=== PATIENT | female | born 1950 ===

== ENCOUNTER → 2020-08-23 15:55 | Outpatient (ROUT) | payer MEDICARE, SELFPAY ==
[2020-08-23 16:41] LABS: BUN Creatinine Ratio 20.2 (6-22); Blood Urea Nitrogen 18 mg/dL (7-17); Calcium 9.2 mg/dL (8.4-10.2); Carbon Dioxide 29 mmol/L (22-32); Chloride 107 mmol/L (98-107); Cholesterol 218 mg/dL (140-199); Estimated Glomerular Filt Rate > 60.0 mL/min (>60); Glucose 90 mg/dL (80-110); HDL Cholesterol 51 mg/dL (40-60); HEMOLYSIS 19 (0-50); LDL Cholesterol Calculated 120 mg/dL (<100); Potassium 4.3 mmol/L (3.4-5.1); Sodium 142 mmol/L (137-145); Triglycerides 234 mg/dL (35-150)
== END ==
PROVIDERS: Visit Provider Internal Medicine
DX: I10 Essential (primary) hypertension (principal); Z13.220 Encounter for screening for lipoid disorders
CPT/HCPCS: 80048; 80061

== ENCOUNTER → 2021-03-26 08:46 | Outpatient (CLI) | payer MEDICARE, SELFPAY ==
[2021-03-26 10:50] LABS: Potassium 4.3 mmol/L (3.4-5.1)
[2021-03-26 10:51] LABS: Alanine Aminotransferase 17 IU/L (<35); Albumin Globulin Ratio 1.2 (1.0-2.8); Alkaline Phosphatase 75 U/L (38-126); Aspartate Aminotransferase 33 IU/L (14-36); BUN Creatinine Ratio 20.5 (6-22); Bilirubin Total 0.3 mg/dL (0.2-1.3); Blood Urea Nitrogen 17 mg/dL (7-17); Carbon Dioxide 25 mmol/L (22-32); Chloride 110 mmol/L (98-107); Cholesterol 159 mg/dL (140-199); Estimated Glomerular Filt Rate > 60.0 mL/min (>60); Globulin 3.3 g/dL (1.7-4.1); Glucose 115 mg/dL (80-110); HDL Cholesterol 46 mg/dL (40-60); HEMOLYSIS 17 (0-50); LDL Cholesterol Calculated 77 mg/dL (<100); Sodium 143 mmol/L (137-145); Total Protein 7.3 g/dL (6.3-8.2); Triglycerides 178 mg/dL (35-150)
[2021-03-26 11:10] LABS: TSH w/ Reflex to FT4 2.63 uIU/mL (0.47-4.68)
== END ==
PROVIDERS: Referring Provider Internal Medicine; Visit Provider Internal Medicine
DX: E78.5 Hyperlipidemia, unspecified (principal); F32.1 Major depressive disorder, single episode, moderate
CPT/HCPCS: 36415; 80053; 80061; 84443

== ENCOUNTER 2022-02-07 14:38 | Emergency (ER) | payer MEDICARE, SELFPAY ==
[2022-02-07] VITALS (9 sets, daily range): BP systolic 127–151; BP diastolic 60–67; PULSE 59–67; RESP 14–28; TEMP 36.4; O2SAT 68–100; BMI 26.5
--- NOTE | 2022-02-07 14:48 | DI.RAD.S_ITS ---
PROCEDURE: XR CHEST 1V INDICATIONS: chest pain TECHNIQUE: One view of the chest was acquired. COMPARISON: [facility], CR, XR CHEST 1 VIEW, 07/08/2021, 21:59. FINDINGS: Surgical changes and devices: None. Lungs and pleura: Lungs are clear. No pleural effusions or pneumothorax. Mediastinum: Mediastinal contours appear normal. Heart size is normal. Bones and chest wall: Remote fracture deformity of the right 7th rib. Overlying soft tissues appear unremarkable. IMPRESSION: No acute cardiopulmonary abnormality. Dictated by: Shade Jones M.D. on 02/07/2022 at 15:42 Approved by: Shade Jones M.D. on 02/07/2022 at 15:43
[2022-02-07 15:14] LABS: Alanine Aminotransferase 21 IU/L (<35); Albumin 4.6 g/dL (3.5-5.0); Albumin Globulin Ratio 1.3 (1.0-2.8); Alkaline Phosphatase 59 U/L (38-126); Aspartate Aminotransferase 37 IU/L (14-36); BUN Creatinine Ratio 23.1 (6-22); Bilirubin Total 0.6 mg/dL (0.2-1.3); Blood Urea Nitrogen 21 mg/dL (7-17); Calcium 9.3 mg/dL (8.4-10.2); Carbon Dioxide 26 mmol/L (22-32); Chloride 109 mmol/L (98-107); Creatine Kinase 109 U/L (30-135); Estimated Glomerular Filt Rate > 60.0 mL/min (>60); Globulin 3.5 g/dL (1.7-4.1); Glucose 99 mg/dL (80-110); HEMOLYSIS 43 (0-50); Lipase 354 U/L (23-300); Magnesium 1.8 mg/dL (1.6-2.3); Potassium 4.1 mmol/L (3.4-5.1); Sodium 143 mmol/L (137-145); Total Protein 8.1 g/dL (6.3-8.2)
[2022-02-07 15:25] LABS: Troponin I < 0.012 ng/mL (0.01-0.034)
[2022-02-07 15:56] LABS: Add Manual Diff / Slide Review NO; Basophils Absolute Auto 0 /uL (0-100); Basophils Percent Auto 0.4 % (0-2); Eosinophils Absolute Auto 100 /uL (0-450); Eosinophils Percent Auto 1.6 % (2-4); Hematocrit 38.3 % (36-46); Lymphocytes Absolute Auto 2500 /uL (1100-4500); Lymphocytes Percent Auto 29.9 % (25-40); Mean Corpuscular HGB Conc 33.9 % (30-36); Mean Corpuscular Hemoglobin 31.4 PG (26-34); Mean Corpuscular Volume 92.4 fL (80-100); Monocytes Absolute Auto 600 /uL (0-900); Monocytes Percent Auto 6.5 % (3-14); Neutrophils Absolute Auto 5200 /uL (1500-7000); Neutrophils Percent Auto 61.6 % (50-75); Platelet Count 183 X10^3/uL (150-400); Red Blood Cell Count 4.14 X10^6/uL (4.0-5.2); White Blood Cell Count 8.5 X10^3/uL (4.5-11.0)
--- NOTE | 2022-02-07 16:25 | ED_ITS ---
HPI - Chest Pain General Chief Complaint: Chest Pain Stated Complaint: Chest Pain W/ Left Arm Pain Time Seen by Provider: 02/07/22 16:24 Source: patient Mode of arrival: Wheelchair Limitations: no limitations History of Present Illness HPI narrative: 71F nonsmoker with cardiac history presents with the chief complaint of left- sided chest pain with radiation down her left arm for about 1 month. She does not remember what she was doing when it started and states it has been rather persistent. She states that seems to be worse when she moves her upper body and uses her left arm. She denies any worsening with deep breath or with exertion. She denies associated symptoms such as dizziness, weakness or lightheadedness. She has no nausea, vomiting or diarrhea. She denies any recent travel, history of blood clot, change in medications or diet. Related Data Previous Rx's Medication Instructions Recorded ketorolac 10 mg tablet 10 mg PO Q6H PRN #14 tab 02/07/22 Allergies Allergy/AdvReac Type Severity Reaction Status Date / Time No Known Drug Allergies Allergy Verified 02/07/22 14:51 Review of Systems Review of Systems Narrative: GENERAL: Denies chills, fatigue, malaise, fever, sweats. HEENT: Denies sinus pain, ear pain, sore throat, difficulty swallowing, dizziness. RESPIRATORY: Denies dyspnea, cough, wheezing, hemoptysis, sputum. CARDIOVASCULAR: See HPI GASTROINTESTINAL: Denies nausea, vomiting, abdominal pain, diarrhea, constipation, melena. : Denies dysuria, frequency, incontinence, hematuria, urinary retention. MUSCULOSKELETAL: denies weakness, joint pain, or bony pain SKIN: Denies rash, skin lesions, or other NEUROLOGIC: Denies weakness, headache, numbness, change in speech, confusion, seizures, incoordination. PSYCHIATRIC: No concerning psychosocial issues. 12 point review of systems is negative except for those stated above Patient History Social History Smoking Status: Never smoker Smoking Status: Never smoker Substance Use Type: does not use Exam Narrative Exam Narrative: GENERAL: [71 year old patient appears stated age. Well-developed patient, in mild distress. HEAD: Atraumatic. Normocephalic. EYES: Pupils equal round and reactive. Extraocular motions intact. No scleral icterus. No injection or drainage. ENT: Nose without bleeding, purulent drainage. Throat without erythema, tonsillar hypertrophy or exudate. Airway patent. NECK: Trachea midline. Non tender CARDIOVASCULAR: Regular rate and rhythm without murmurs, gallops, or rubs. Pain on palpation of left anterior chest. Pain is also reproduced when patient uses left upper extremity to forcefully pushed me away. Both of these elements worsen the pain that brought her in RESPIRATORY: Clear to auscultation. Breath sounds equal bilaterally. No wheezes, rales, or rhonchi. GASTROINTESTINAL: Abdomen soft, non-tender, nondistended. EXTREMITIES: No edema or joint tenderness. BACK: Nontender without deformity or crepitance. No flank tenderness. NEURO: AOx3. SKIN: No rash or erythema of visible areas Initial Vital Signs Initial Vital Signs: Vital Signs Temperature 97.5 F L 02/07/22 14:40 Pulse Rate 67 02/07/22 14:40 Respiratory Rate 18 02/07/22 14:40 Blood Pressure 127/60 02/07/22 14:40 Pulse Oximetry 94 02/07/22 14:40 Course Orders Ordered: ED Orders 02/07/22 14:48 XR chest 1V Stat EKG-12 Lead Stat 02/07/22 14:50 Complete Blood Count AUTO DIFF Stat Comprehensive Metabolic Panel Stat D Dimer Stat Lipase Stat Magnesium Stat Troponin & CK Cardiac Panel Stat 02/07/22 16:26 EKG-12 Lead Stat 02/07/22 16:46 CT angio chest PE protocol Stat Discontinued Medications Ketorolac Tromethamine (Ketorolac 30 Mg/Ml Vial) 15 mg IV NOW ONE Stop: 02/07/22 16:31 Last Admin: 02/07/22 16:35 Dose: 15 mg Documented by: SHAVONNE Reevaluation(s) Reevaluation #1: Patient resting comfortably and pain free after above-stated therapies Vital Signs Vital signs: Vital Signs - 8 hr 02/07/22 14:40 02/07/22 16:05 02/07/22 16:06 Temperature 97.5 F L Pulse Rate 67 62 62 Respiratory Rate 18 Blood Pressure 127/60 138/63 Pulse Oximetry 94 98 02/07/22 16:30 02/07/22 16:31 02/07/22 17:05 Temperature Pulse Rate 59 L 61 Respiratory Rate 25 H 28 H Blood Pressure 151/67 H Pulse Oximetry 97 87 L 68 L 02/07/22 17:30 02/07/22 18:00 02/07/22 18:02 Temperature Pulse Rate 60 59 L 60 Respiratory Rate 14 22 19 Blood Pressure 144/63 H Pulse Oximetry 100 100 99 MDM - Chest Pain Lab Data Result diagrams: 02/07/22 14:50 02/07/22 14:50 Labs: Lab Results 02/07/22 02/07/22 02/07/22 Range/Units 14:50 14:50 14:50 WBC 8.5 (4.5-11.0) X10^3/uL RBC 4.14 (4.0-5.2) X10^6/uL Hgb 13.0 (12.0-16.0) g/dL Hct 38.3 (36-46) % MCV 92.4 (80-100) fL MCH 31.4 (26-34) PG MCHC 33.9 (30-36) % RDW 14.0 (11.6-14.8) % Plt Count 183 (150-400) X10^3/uL Neut % (Auto) 61.6 (50-75) % Lymph % (Auto) 29.9 (25-40) % [place] % (Auto) 6.5 (3-14) % Eos % (Auto) 1.6 L (2-4) % Baso % (Auto) 0.4 (0-2) % Neut # (Auto) 5200 (1926-6215) /uL Lymph # (Auto) 2500 (7656-0848) /uL [place] # (Auto) 600 (0-900) /uL Eos # (Auto) 100 (0-450) /uL Baso # (Auto) 0 (0-100) /uL D-Dimer 505 H (<230) ng/mL Sodium 143 (137-145) mmol/L Potassium 4.1 (3.4-5.1) mmol/L Chloride 109 H (98-107) mmol/L Carbon Dioxide 26 (22-32) mmol/L BUN 21 H (7-17) mg/dL Creatinine 0.91 (0.52-1.04) mg/dL Estimated GFR > 60.0 (>60) mL/min BUN/Creatinine Ratio 23.1 H (6-22) Glucose 99 (80-110) mg/dL Calcium 9.3 (8.4-10.2) mg/dL Magnesium 1.8 (1.6-2.3) mg/dL Total Bilirubin 0.6 (0.2-1.3) mg/dL AST 37 H (14-36) IU/L ALT 21 (<35) IU/L Alkaline Phosphatase 59 (38-126) U/L Total Creatine Kinase 109 (30-135) U/L CK-MB (CK-2) 1.40 (<2.37) ng/mL CK-MB (CK-2) Rel Index 1.3 L (1.5-5.0) % Troponin I < 0.012 (0.01-0.034) ng/mL Total Protein 8.1 (6.3-8.2) g/dL Albumin 4.6 (3.5-5.0) g/dL Globulin 3.5 (1.7-4.1) g/dL Albumin/Globulin Ratio 1.3 (1.0-2.8) Lipase 354 H (23-300) U/L Imaging Data Chest x-ray: Radiologist's Impression: [address] [id number] XRay Report Signed Patient: Kelile Perez MR#: [id number] : 1950 Acct:[id number] Age/Sex: 71 / F Date of Service: 02/07/22 Loc: Accession Number: [id number] ?? Procedure: XR chest 1V Ordering Provider: Dexter Orosco D.O. PROCEDURE:? XR CHEST 1V ? INDICATIONS:? chest pain ? TECHNIQUE:? One view of the chest was acquired.? ? COMPARISON:? [facility], , XR CHEST 1 VIEW, 07/08/2021, 21:59. ? FINDINGS:? ? Surgical changes and devices:? None.? ? Lungs and pleura:? Lungs are clear.? No pleural effusions or pneumothorax.? ? Mediastinum:? Mediastinal contours appear normal.? Heart size is normal.? ? Bones and chest wall:? Remote fracture deformity of the right 7th rib.? Overlyi ng soft tissues appear unremarkable.? ? IMPRESSION:? No acute cardiopulmonary abnormality. ? ? Dictated by: Shade Jones M.D. on 02/07/2022 at 15:42 ? ? Approved by: Shade Jones M.D. on 02/07/2022 at 15:43 ? ECG Data Interpretation: EKG is sinus Oni with a rate of 58 and free of any signs of ischemia or ectopy. No ST segmental elevation or depression. No T wave inversions MDM Narrative Medical decision making narrative: 71-year-old female has a very reassuring history and physical exam. She has a sharp and stabbing reproducible pinpoint area of chest pain in her left anterior chest that is worse with motion, palpation and use of her left arm. Symptoms nearly completely resolved with Toradol. Labs are unremarkable, she has a nega tive troponin, no evidence of a PE, EKGs are nonischemic. She has no exertional symptoms or cardiac equivalent such as dizziness, weakness, lightheadedness. Discharge Plan Departure Patient Disposition: Home Clinical Impression: Atypical chest pain Instructions: DI for Atypical Chest Pain Activity Restrictions/Additional Instructions: *You have been diagnosed with [atypical chest pain. Your history and physical exam are very reassuring and there is no indication of a heart attack, blood c lot, pneumonia or other life-threatening diagnosis *What to do: *Please continue to take your regular medications as directed. [ x] New medication prescriptions sent to your pharmacy: [ ] [ ] New medication written as a paper prescription [ ] No new medications given *Please follow up with your primary care provider in 2-3 days, call for an appointment. Let them know you were seen in the Emergency Department and that we ask that you be seen in follow up. We will electronically transmit a record of today's note if your PCP is in our system *If you do not have a primary care provider please contact the [facility] Resource line at [phone]. They will ask some questions about your medical history and help get you set up with a doctor in the community. *Return to Emergency Department if you should have any new, worsening or concerning symptoms, such as [fever greater than 101 F, shaking chills, worsening pain, persistent vomiting or other bothersome symptoms] Prescriptions: New ketorolac 10 mg tablet 10 mg PO Q6H PRN (Reason: pain) Qty: 14 0RF Referrals: Gem Dwyer MD [Primary Care Provider] -
[2022-02-07] MEDS: KETOROLAC 30 MG/ML VIAL 15 MG IV (16:35)
[2022-02-07 16:36] LABS: D Dimer 505 ng/mL (<230)
--- NOTE | 2022-02-07 16:46 | DI.CT.S_ITS ---
PROCEDURE: CT ANGIO CHEST PE PROTOCOL INDICATIONS: left sided chest pain, occasional SOB, Critical DDImer TECHNIQUE: After the administration of intravenous contrast, 2 mm thick sections acquired from the pulmonary apices to the posterior costophrenic angles. 3-dimensional maximum intensity projection (MIP) coronal and sagittal reformats were then acquired through the thorax. For radiation dose reduction, the following was used: automated exposure control, adjustment of mA and/or kV according to patient size. COMPARISON: [facility], CR, XR CHEST 1V, 02/07/2022, 14:53. FINDINGS: Image quality: Excellent. Pulmonary arteries: Pulmonary arteries are normal in size, and demonstrate no intraluminal filling defects to suggest central pulmonary embolism. Lungs and pleura: Mild bibasilar septal thickening. There is irregular peribronchial thickening medially in the right middle lobe and distal minor atelectatic change. The airways are patent and there is very slight diffuse peribronchial thickening. No other dense consolidations or pleural effusions. Mediastinum: Heart size is enlarged, without pericardial effusion. No mediastinal or hilar adenopathy. Thoracic aorta is normal in caliber and enhancement. Esophagus is normal in caliber, without hiatal hernia. Bones and chest wall: No suspicious bony lesions. Ribs and thoracic spine appear intact throughout. Thyroid gland contains a small right lobe cystic nodule.. No axillary or supraclavicular adenopathy. Abdomen: Visualized upper abdomen demonstrates mild enlargement of the liver with a possibly nodular margin. There are two cysts in the posterior right hepatic lobe. The gallbladder surgically absent. No other visible abnormalities. IMPRESSION: 1. No pulmonary embolus. 2. Changes of mild bronchitis with slight right middle lobe bronchiolitis and atelectasis. 3. Possible cirrhotic change in a slightly enlarged liver. 4. Mild cardiomegaly. Dictated by: Yajaira Hager M.D. on 02/07/2022 at 17:32 Approved by: Yajaira Hager M.D. on 02/07/2022 at 17:41
[2022-02-07 17:19] LABS: CKMB % Relative Index 1.3 % (1.5-5.0)
== END 2022-02-07 18:39 | disposition home or self-care (01) ==
PROVIDERS: Emergency Provider Emergency Medicine; PCP Internal Medicine
DX: R07.89 Other chest pain (principal)
CPT/HCPCS: 36415; 71045; 71275; 80053; 82550; 82553; 83690; 83735; 84484; 85025; 85379; 93005; 93010; 96374; 99284; J1885

== ENCOUNTER 2022-04-12 06:54 | Emergency (ER) | payer MEDICARE, SELFPAY ==
[2022-04-12] VITALS (14 sets, daily range): BP systolic 97–130; BP diastolic 51–68; PULSE 69–82; RESP 20–30; TEMP 38; O2SAT 93–97
--- NOTE | 2022-04-12 07:36 | DI.RAD.S_ITS ---
PROCEDURE: XR CHEST 2V INDICATIONS: shortness of breath TECHNIQUE: 2 views of the chest were acquired. COMPARISON: [facility], , XR CHEST 1V, 02/07/2022, 14:53. FINDINGS: Surgical changes and devices: None. Lungs and pleura: Lungs are clear. No pleural effusions or pneumothorax. Mediastinum: Mediastinal contours are normal. Heart size is normal. Bones and chest wall: No suspicious bony abnormalities. Soft tissues appear unremarkable. IMPRESSION: No acute cardiopulmonary findings Approved by: Sreedhar Zamarripa M.D. on 04/12/2022 at 8:29
--- NOTE | 2022-04-12 08:17 | ED_ITS ---
HPI - SOB/Dyspnea General Chief Complaint: Shortness of Breath/Dyspnea Stated Complaint: Coughing a lot x 7 days Time Seen by Provider: 04/12/22 07:50 Source: patient and family Mode of arrival: Family Vehicle History of Present Illness HPI Narrative: Patient is a 71-year-old female history of coronary artery disease with stent, hypertension presenting today with fever and. She says she has not felt well for about 1 week but over the last 3 days has gotten significantly worse. Today she has fever 100.4. Every time she takes a breath she coughs. She says her chest hurts but only when she coughs. She is having some shortness of breath tightness. No nausea or vomiting. Related Data Previous Rx's Medication Instructions Recorded ketorolac 10 mg tablet 10 mg PO Q6H PRN #14 tab 02/07/22 albuterol sulfate 90 mcg/actuation 2 puff INHALATION Q4-6H PRN #8.5 04/12/22 aerosol inhaler gram dextromethorphan-guaifenesin 10 1 tab-cap PO Q8H PRN #20 cap 04/12/22 mg-200 mg capsule (Robitussin Cough-Chest Congestion DM) prednisone 20 mg tablet 40 mg PO DAILY #10 tab 04/12/22 Allergies Allergy/AdvReac Type Severity Reaction Status Date / Time No Known Drug Allergies Allergy Verified 02/07/22 14:51 Review of Systems Review of Systems Narrative: GENERAL:+ fever,+ fatigue, HEENT: Denies sinus pain, ear pain, sore throat, difficulty swallowing, neck pain RESPIRATORY: See HPI CARDIOVASCULAR: Denies chest pain, palpitations, orthopnea, edema GASTROINTESTINAL: Denies nausea, vomiting, abdominal pain, diarrhea, constipati on, melena. : Denies dysuria, frequency, incontinence, hematuria, urinary retention, flank pain. MUSCULOSKELETAL: Denies weakness, joint pain, or bony pain SKIN: No rash, no erythema, no pruritus NEUROLOGIC: Denies weakness, dizziness, headache, numbness, change in speech, confusion PSYCHIATRIC: No concerning psychosocial issues. 12 point review of systems is negative except for those stated above and HPI Patient History Medical History Coronary artery disease Hypertension Social History Smoking Status: Never smoker Smoking Status: Never smoker Substance Use Type: does not use Exam Initial Vital Signs Initial Vital Signs: Vital Signs Temperature 100.4 F H 04/12/22 07:38 Pulse Rate 82 04/12/22 07:38 Respiratory Rate 22 04/12/22 07:38 Blood Pressure 130/60 04/12/22 07:38 Pulse Oximetry 96 04/12/22 07:38 GENERAL: Alert 71-year-old female appears to not feel well mildly diaphoretic HEENT: Head atraumatic,EOMI, pupils reactive, face symmetric, [moist] mucous membranes CARDIOVASCULAR: Regular rate and rhythm without murmurs, rubs or gallops. RESPIRATORY: Decreased breath sounds slightly coarse no wheezing coughing every time she tries to breathe or talk ABDOMEN: Soft, nontender. Normoactive bowel sounds all 4 quadrants. No guarding or rebound. EXTREMITIES: Normal range of motion, no clubbing or edema. Neurovascularly intact NEUROLOGICAL: Alert and oriented x4.Normal gait and speech. SKIN: Warm, dry, no laceration, no petechiae, no rashes or lesions. Course Orders Ordered: Discontinued Medications Acetaminophen (Acetaminophen 325 Mg Tablet) 975 mg PO NOW ONE Stop: 04/12/22 08:11 Last Admin: 04/12/22 09:00 Dose: 975 mg Documented by: SHERMAN Albuterol/Ipratropium (Albuterol/Ipratropium 3 Ml Ampul) 3 ml INH NOW ONE Stop: 04/12/22 08:22 Last Admin: 04/12/22 09:08 Dose: 3 ml Documented by: THOMAS Sodium Chloride (Normal Saline 0.9%) 1,000 mls @ 1,000 mls/hr IV BOLUS ONE Stop: 04/12/22 10:12 Last Infusion: 04/12/22 12:08 Dose: 0 mls/hr Documented by: Admin: 04/12/22 09:24 Dose: 1,000 mls/hr Documented by: SHERMAN Methylprednisolone (Methylprednisolone 125 Mg/2 Ml Vial) 125 mg IV NOW ONE Stop: 04/12/22 11:08 Last Admin: 04/12/22 12:04 Dose: 125 mg Documented by: RADHA Vital Signs Vital signs: Vital Signs - 8 hr 04/12/22 11:30 04/12/22 11:31 04/12/22 12:00 Pulse Rate 69 70 69 Respiratory Rate 20 24 22 Blood Pressure 101/51 L Pulse Oximetry 94 94 93 04/12/22 12:01 Pulse Rate 72 Respiratory Rate 20 Blood Pressure 104/53 L Pulse Oximetry 93 MDM - SOB/Dyspnea Lab Data Result diagrams: 04/12/22 08:38 04/12/22 08:38 Labs: Lab Results 04/12/22 04/12/22 04/12/22 Range/Units 08:36 08:38 08:38 WBC 12.5 H (4.5-11.0) X10^3/uL RBC 3.89 L (4.0-5.2) X10^6/uL Hgb 12.3 (12.0-16.0) g/dL Hct 36.0 (36-46) % MCV 92.4 (80-100) fL MCH 31.5 (26-34) PG MCHC 34.1 (30-36) % RDW 14.8 (11.6-14.8) % Plt Count 185 (150-400) X10^3/uL Neut % (Auto) 82.6 H (50-75) % Lymph % (Auto) 8.7 L (25-40) % [place] % (Auto) 7.6 (3-14) % Eos % (Auto) 0.6 L (2-4) % Baso % (Auto) 0.5 (0-2) % Neut # (Auto) 62280 H (1518-5493) /uL Lymph # (Auto) 1100 (0772-8747) /uL [place] # (Auto) 900 (0-900) /uL Eos # (Auto) 100 (0-450) /uL Baso # (Auto) 100 (0-100) /uL Sodium 140 (137-145) mmol/L Potassium 4.6 (3.4-5.1) mmol/L Chloride 108 H (98-107) mmol/L Carbon Dioxide 23 (22-32) mmol/L BUN 19 H (7-17) mg/dL Creatinine 0.89 (0.52-1.04) mg/dL Estimated GFR > 60 (>60) mL/min BUN/Creatinine Ratio 21.3 (6-22) Glucose 151 H (80-110) mg/dL Lactate (0.7-2.1) mmol/L Calcium 8.9 (8.4-10.2) mg/dL Total Bilirubin 0.7 (0.2-1.3) mg/dL AST 34 (14-36) IU/L ALT 15 (<35) IU/L Alkaline Phosphatase 72 (38-126) U/L Total Creatine Kinase (30-135) U/L CK-MB (CK-2) (<2.37) ng/mL CK-MB (CK-2) Rel Index (1.5-5.0) % Troponin I (0.01-0.034) ng/mL NT-Pro-B Natriuret Pep (<125) pg/mL Total Protein 8.0 (6.3-8.2) g/dL Albumin 4.4 (3.5-5.0) g/dL Globulin 3.6 (1.7-4.1) g/dL Albumin/Globulin Ratio 1.2 (1.0-2.8) SARS-CoV-2 (PCR) Negative (Negative) 04/12/22 04/12/22 Range/Units 08:38 08:38 WBC (4.5-11.0) X10^3/uL RBC (4.0-5.2) X10^6/uL Hgb (12.0-16.0) g/dL Hct (36-46) % MCV (80-100) fL MCH (26-34) PG MCHC (30-36) % RDW (11.6-14.8) % Plt Count (150-400) X10^3/uL Neut % (Auto) (50-75) % Lymph % (Auto) (25-40) % [place] % (Auto) (3-14) % Eos % (Auto) (2-4) % Baso % (Auto) (0-2) % Neut # (Auto) (8140-1685) /uL Lymph # (Auto) (8830-1065) /uL [place] # (Auto) (0-900) /uL Eos # (Auto) (0-450) /uL Baso # (Auto) (0-100) /uL Sodium (137-145) mmol/L Potassium (3.4-5.1) mmol/L Chloride (98-107) mmol/L Carbon Dioxide (22-32) mmol/L BUN (7-17) mg/dL Creatinine (0.52-1.04) mg/dL Estimated GFR (>60) mL/min BUN/Creatinine Ratio (6-22) Glucose (80-110) mg/dL Lactate 1.0 (0.7-2.1) mmol/L Calcium (8.4-10.2) mg/dL Total Bilirubin (0.2-1.3) mg/dL AST (14-36) IU/L ALT (<35) IU/L Alkaline Phosphatase (38-126) U/L Total Creatine Kinase 130 (30-135) U/L CK-MB (CK-2) 0.55 (<2.37) ng/mL CK-MB (CK-2) Rel Index 0.4 L (1.5-5.0) % Troponin I < 0.012 (0.01-0.034) ng/mL NT-Pro-B Natriuret Pep 563 H (<125) pg/mL Total Protein (6.3-8.2) g/dL Albumin (3.5-5.0) g/dL Globulin (1.7-4.1) g/dL Albumin/Globulin Ratio (1.0-2.8) SARS-CoV-2 (PCR) (Negative) Imaging Data Chest x-ray: Radiologist's Impression: Kellie turner MR#: [id number] : 1950 Acct:[id number] Age/Sex: 71 / F Date of Service: 04/12/22 Loc: ED Accession Number: [id number] ?? Procedure: XR chest 2V Ordering Provider: Gladis Villavicencio D.O. PROCEDURE:? XR CHEST 2V ? INDICATIONS:? shortness of breath ? TECHNIQUE:? 2 views of the chest were acquired.? ? COMPARISON:? [facility], , XR CHEST 1V, 02/07/2022, 14:53. ? FINDINGS:? ? Surgical changes and devices:? None.? ? Lungs and pleura:? Lungs are clear.? No pleural effusions or pneumothorax.? ? Mediastinum:? Mediastinal contours are normal.? Heart size is normal.? ? Bones and chest wall:? No suspicious bony abnormalities.? Soft tissues appear unremarkable.? ? IMPRESSION:? No acute cardiopulmonary findings ? ? ? Approved by: Sreedhar Zamarripa M.D. on 04/12/2022 at 8:29? ECG Data Interpretation: Sinus rhythm rate 81 FL interval 176 QRS 132 QTC 441 wry bundle branch block noted, similar to previous EKG MDM Narrative Medical decision making narrative: Patient is not hypoxic. She is febrile no evidence of pneumonia. COVID test is negative. Probably upper respiratory virus. At this time supportive care only. She did receive albuterol treatment which seemed to help a little bit. She is taking Mucinex [id number] she says it is helping a little bit. Will send her home with an inhaler. This time does not meet admission criteria and no further treatment in the ED indicated. Discharge Plan Departure Patient Disposition: Home Clinical Impression: Acute upper respiratory infection Instructions: DI for Viral Upper Respiratory Infection -- Adult Activity Restrictions/Additional Instructions: *You have been diagnosed with upper respiratory infection *What to do: At this time her COVID test is negative. No need for antibiotics. Rest and hydrate *Continue to take medications as directed --> SENT TO [facility] Tylenol 650 mg every 6 hours if needed for fever or pain Motrin 600 mg every 6 hours if needed for fever or pain Prednisone 40 mg once a day for 5 days Albuterol inhaler 1-2 puffs if needed for coughing spell *Follow up with your primary care provider in 2-3 days or call [phone] *Return to ER if you should have increasing shortness of breath, chest pain or any new, worsening or concerning symptoms Prescriptions: New prednisone 20 mg tablet 40 mg PO DAILY Qty: 10 0RF albuterol sulfate 90 mcg/actuation HFA aerosol inhaler 2 puff INHALATION Q4-6H PRN (Reason: shortness of breath or wheezing) Qty: 8.5 0RF Robitussin Cough-Chest [place] DM 10-200 mg capsule 1 tab-cap PO Q8H PRN (Reason: cough) Qty: 20 0RF No Action ketorolac 10 mg tablet 10 mg PO Q6H PRN (Reason: pain) Qty: 14 0RF Referrals: Gem Dwyer MD [Primary Care Provider] -
[2022-04-12] MEDS: ACETAMINOPHEN 325 MG TABLET 975 MG PO (09:00)
[2022-04-12 09:01] LABS: COVID19 -Nasal RAPID Negative (Negative)
[2022-04-12 09:05] LABS: Add Manual Diff / Slide Review NO; Basophils Absolute Auto 100 /uL (0-100); Basophils Percent Auto 0.5 % (0-2); Creatine Kinase 130 U/L (30-135); Eosinophils Absolute Auto 100 /uL (0-450); Eosinophils Percent Auto 0.6 % (2-4); Hemoglobin 12.3 g/dL (12.0-16.0); Lymphocytes Absolute Auto 1100 /uL (1100-4500); Lymphocytes Percent Auto 8.7 % (25-40); Mean Corpuscular HGB Conc 34.1 % (30-36); Mean Corpuscular Hemoglobin 31.5 PG (26-34); Mean Corpuscular Volume 92.4 fL (80-100); Monocytes Absolute Auto 900 /uL (0-900); Monocytes Percent Auto 7.6 % (3-14); Neutrophils Absolute Auto 10300 /uL (1500-7000); Neutrophils Percent Auto 82.6 % (50-75); Platelet Count 185 X10^3/uL (150-400); Red Blood Cell Count 3.89 X10^6/uL (4.0-5.2); Red Cell Distribution Width 14.8 % (11.6-14.8); White Blood Cell Count 12.5 X10^3/uL (4.5-11.0)
[2022-04-12 09:07] LABS: Alanine Aminotransferase 15 IU/L (<35); Albumin 4.4 g/dL (3.5-5.0); Albumin Globulin Ratio 1.2 (1.0-2.8); Alkaline Phosphatase 72 U/L (38-126); Aspartate Aminotransferase 34 IU/L (14-36); BUN Creatinine Ratio 21.3 (6-22); Bilirubin Total 0.7 mg/dL (0.2-1.3); Blood Urea Nitrogen 19 mg/dL (7-17); Calcium 8.9 mg/dL (8.4-10.2); Carbon Dioxide 23 mmol/L (22-32); Chloride 108 mmol/L (98-107); Estimated Glomerular Filt Rate > 60 mL/min (>60); Globulin 3.6 g/dL (1.7-4.1); Glucose 151 mg/dL (80-110); HEMOLYSIS 43 (0-50); Potassium 4.6 mmol/L (3.4-5.1); Sodium 140 mmol/L (137-145)
[2022-04-12] MEDS: ALBUTEROL/IPRATROPIUM 3 ML AMPUL INH (09:08)
[2022-04-12 09:19] LABS: NT-proBNP (BNP-Adult 18+) 563 pg/mL (<125); Troponin I < 0.012 ng/mL (0.01-0.034)
[2022-04-12 09:21] LABS: CKMB % Relative Index 0.4 % (1.5-5.0); Creatine Kinase MB 0.55 ng/mL (<2.37)
[2022-04-12] MEDS: SODIUM CHLORIDE 0.9% 1,000 ML 1000 ML IV (09:24)
[2022-04-12] MEDS: methylPREDNISolone 125 MG/2 ML VIAL IV (12:04)
== END 2022-04-12 12:36 | disposition home or self-care (01) ==
PROVIDERS: Emergency Provider Emergency Medicine; PCP Internal Medicine
DX: J06.9 Acute upper respiratory infection, unspecified (principal); R05.9 Cough, unspecified; Z20.822 Contact with and (suspected) exposure to COVID-19
CPT/HCPCS: 36415; 71046; 80053; 82550; 82553; 83605; 83880; 84484; 85025; 87635; 93005; 93010; 96374; 99284; C9803; J2930

== ENCOUNTER 2022-04-16 08:05 | Emergency (ER) | payer MEDICARE, SELFPAY ==
[2022-04-16] VITALS (12 sets, daily range): BP systolic 132–134; BP diastolic 73; PULSE 72–89; RESP 20–31; TEMP 37.7; O2SAT 91–94; BMI 26.5
--- NOTE | 2022-04-16 08:24 | DI.RAD.S_ITS ---
PROCEDURE: XR CHEST 2V INDICATIONS: shortness of breath TECHNIQUE: 2 views of the chest were acquired. COMPARISON: [facility], CR, XR CHEST 2V, 04/12/2022, 7:54. FINDINGS: Surgical changes and devices: None. Lungs and pleura: Lungs are clear. No pleural effusions or pneumothorax. Mediastinum: Mediastinal contours are normal. Heart size is normal. Bones and chest wall: No suspicious bony abnormalities. Soft tissues appear unremarkable. IMPRESSION: No acute process. Dictated by: Shahrzad Johnson M.D. on 04/16/2022 at 8:47 Approved by: Shahrzad Johnson M.D. on 04/16/2022 at 8:48
[2022-04-16 08:32] LABS: Add Manual Diff / Slide Review NO; Basophils Absolute Auto 0 /uL (0-100); Basophils Percent Auto 0.3 % (0-2); Eosinophils Absolute Auto 0 /uL (0-450); Eosinophils Percent Auto 0.2 % (2-4); Hematocrit 35.9 % (36-46); Hemoglobin 12.2 g/dL (12.0-16.0); Lymphocytes Absolute Auto 2500 /uL (1100-4500); Lymphocytes Percent Auto 19.5 % (25-40); Mean Corpuscular Hemoglobin 31.4 PG (26-34); Mean Corpuscular Volume 92.2 fL (80-100); Monocytes Absolute Auto 900 /uL (0-900); Monocytes Percent Auto 6.8 % (3-14); Neutrophils Absolute Auto 9200 /uL (1500-7000); Neutrophils Percent Auto 73.2 % (50-75); Platelet Count 231 X10^3/uL (150-400); Red Blood Cell Count 3.89 X10^6/uL (4.0-5.2); Red Cell Distribution Width 14.4 % (11.6-14.8); White Blood Cell Count 12.6 X10^3/uL (4.5-11.0)
[2022-04-16 08:38] LABS: Alanine Aminotransferase 37 IU/L (<35); Albumin 4.3 g/dL (3.5-5.0); Albumin Globulin Ratio 1.1 (1.0-2.8); Alkaline Phosphatase 83 U/L (38-126); Aspartate Aminotransferase 46 IU/L (14-36); BUN Creatinine Ratio 19.3 (6-22); Bilirubin Total 0.6 mg/dL (0.2-1.3); Blood Urea Nitrogen 17 mg/dL (7-17); Calcium 9.3 mg/dL (8.4-10.2); Carbon Dioxide 27 mmol/L (22-32); Chloride 106 mmol/L (98-107); Estimated Glomerular Filt Rate > 60 mL/min (>60); Globulin 3.8 g/dL (1.7-4.1); Glucose 120 mg/dL (80-110); HEMOLYSIS < 15 (0-50); Lactate (Lactic Acid) 1.1 mmol/L (0.7-2.1); Potassium 3.7 mmol/L (3.4-5.1); Sodium 144 mmol/L (137-145); Total Protein 8.1 g/dL (6.3-8.2)
--- NOTE | 2022-04-16 08:48 | ED_ITS ---
HPI - SOB/Dyspnea General Chief Complaint: Shortness of Breath/Dyspnea Stated Complaint: Cough, fever- here Thursday, not getting better Time Seen by Provider: 04/16/22 08:29 Source: patient Mode of arrival: Wheelchair Limitations: no limitations History of Present Illness HPI Narrative: The patient has been ill for about 3 weeks. She has sore throat. She has productive cough, and constant coughing. She is having chest and upper abdominal pain associated with the frequent coughing. The cough is occasionally productive. She denies fever chills. She has no history of cardiac disease, or chronic respiratory disease. She is a nonsmoker. She has no history of asthma or allergies. She has been seen here 3 days ago, diagnosed with viral respiratory illness. COVID-19 testing is negative. She has no headache, no high fever, and no facial pressure. She has mid abdominal pain, seemingly from cough. However she has loose bowel movements. She has no bloody BMs. Her appetite is decreased, her fluid intake is good. Related Data Previous Rx's Medication Instructions Recorded ketorolac 10 mg tablet 10 mg PO Q6H PRN #14 tab 02/07/22 albuterol sulfate 90 mcg/actuation 2 puff INHALATION Q4-6H PRN #8.5 04/12/22 aerosol inhaler gram dextromethorphan-guaifenesin 10 1 tab-cap PO Q8H PRN #20 cap 04/12/22 mg-200 mg capsule (Robitussin Cough-Chest Congestion DM) prednisone 20 mg tablet 40 mg PO DAILY #10 tab 04/12/22 prednisone 20 mg tablet 40 mg PO DAILY 5 Days #10 tab 04/16/22 Allergies Allergy/AdvReac Type Severity Reaction Status Date / Time No Known Drug Allergies Allergy Verified 02/07/22 14:51 Review of Systems Constitutional Constitutional: Reports body ache(s), Denies chills, Reports fatigue, Denies fever(s), Reports poor appetite and Denies weakness Eyes Eyes: Denies change in vision and Denies eye discharge ENT Ears, Nose, Mouth, and Throat: Reports dizziness, Denies otalgia, Denies facial pain, Denies sinus pressure and Reports sore throat Cardiovascular Cardiovascular: Reports chest pain (Exacerbated by cough) Respiratory Respiratory: Reports cough and Reports pain with cough Gastrointestinal Gastrointestinal: Denies abdominal pain, Denies nausea and Denies vomiting Genitourinary Genitourinary: Denies dysuria Musculoskeletal Musculoskeletal: Denies back pain Integumentary/Breasts Skin/Breast: Denies rash Neurologic Neurologic: Denies confusion, Reports dizziness and Denies weakness Psychiatric Psychiatric: Denies anxiety and Denies confusion Endocrine Endocrine: Reports fatigue Hematologic/Lymphatic On Anticoagulants: No Patient History Medical History Coronary artery disease Hypertension Social History Smoking Status: Never smoker Smoking Status: Never smoker Substance Use Type: does not use Exam Initial Vital Signs Initial Vital Signs: Vital Signs Temperature 99.8 F H 04/16/22 08:16 Pulse Rate 89 04/16/22 08:16 Respiratory Rate 24 04/16/22 08:16 Blood Pressure 132/73 04/16/22 08:16 Pulse Oximetry 94 04/16/22 08:16 Const General: cooperative, healthy appearing, well groomed and acute distress (With frequent uncomfortable coughing.) Orientation: Orientation (Normal) [facility] Head: normocephalic and atraumatic Ears: TM's normal bilaterally Nose: nares normal Face and sinus: sinuses nontender Mouth: oropharynx normal Eyes Pupils: PERRL EOM: EOM intact bilaterally Neck Neck: full ROM, No no meningeal signs and No lymphadenopathy Chest Other: Reproducible tenderness in the left upper sternal border. Resp Other: Slight RUL wheezes, no rales or rhonchi. Cardio Rate: regular rate Rhythm: regular rhythm Heart Sounds: S1 normal, S2 normal, no click, no gallops and no murmurs GI Inspection: normal to inspection Palpation: soft, No mass and No tender Auscultation: normal bowel sounds Back/Spine/Pelvis Back: normal to inspection and No back tenderness Skin General: no rashes or lesions noted Neuro General: patient alert, patient awake, patient oriented x3 and no focal motor deficits Extrem General: normal to inspection, full ROM, no pedal edema and no calf tenderness Psych Mental Status: mental status grossly normal Course Course Course Narrative: The patient has received DuoNeb followed by albuterol neb, as well as Solu- Medrol. Her right upper lung his cleared, her cough has diminished, not totally resolved. Her chest x-ray is clear. A respiratory PCR panel revealed adenovirus infection. Orders Ordered: Discontinued Medications Albuterol (Albuterol 2.5 Mg/3 Ml Neb (Adult)) 2.5 mg INH NOW ONE Stop: 04/16/22 08:46 Last Admin: 04/16/22 11:25 Dose: 2.5 mg Documented by: GRICELDA Albuterol (Albuterol Hfa Prepack) 1 box MISC SEEINSTR ONE Stop: 04/16/22 12:18 Last Admin: 04/16/22 13:05 Dose: 1 box Documented by: LEXY Methylprednisolone (Methylprednisolone 125 Mg/2 Ml Vial) 125 mg IV NOW ONE Stop: 04/16/22 09:13 Last Admin: 04/16/22 09:25 Dose: 125 mg Documented by: LEXY Vital Signs Vital signs: Vital Signs - 8 hr 04/16/22 11:00 04/16/22 11:26 04/16/22 11:30 Pulse Rate 72 74 84 Respiratory Rate 23 20 24 Blood Pressure Pulse Oximetry 93 93 91 04/16/22 12:00 04/16/22 12:30 04/16/22 13:00 Pulse Rate 79 80 78 Respiratory Rate 22 31 H 23 Blood Pressure Pulse Oximetry 92 93 94 04/16/22 13:34 Pulse Rate Respiratory Rate Blood Pressure 134/73 Pulse Oximetry MDM - SOB/Dyspnea Lab Data Result diagrams: 04/16/22 08:20 04/16/22 08:20 Labs: Lab Results 04/16/22 04/16/22 04/16/22 Range/Units 08:20 08:20 08:20 WBC 12.6 H (4.5-11.0) X10^3/uL RBC 3.89 L (4.0-5.2) X10^6/uL Hgb 12.2 (12.0-16.0) g/dL Hct 35.9 L (36-46) % MCV 92.2 (80-100) fL MCH 31.4 (26-34) PG MCHC 34.0 (30-36) % RDW 14.4 (11.6-14.8) % Plt Count 231 (150-400) X10^3/uL Neut % (Auto) 73.2 (50-75) % Lymph % (Auto) 19.5 L (25-40) % [place] % (Auto) 6.8 (3-14) % Eos % (Auto) 0.2 L (2-4) % Baso % (Auto) 0.3 (0-2) % Neut # (Auto) 9200 H (0614-4173) /uL Lymph # (Auto) 2500 (4719-7273) /uL [place] # (Auto) 900 (0-900) /uL Eos # (Auto) 0 (0-450) /uL Baso # (Auto) 0 (0-100) /uL Sodium 144 (137-145) mmol/L Potassium 3.7 (3.4-5.1) mmol/L Chloride 106 (98-107) mmol/L Carbon Dioxide 27 (22-32) mmol/L BUN 17 (7-17) mg/dL Creatinine 0.88 (0.52-1.04) mg/dL Estimated GFR > 60 (>60) mL/min BUN/Creatinine Ratio 19.3 (6-22) Glucose 120 H (80-110) mg/dL Lactate 1.1 (0.7-2.1) mmol/L Calcium 9.3 (8.4-10.2) mg/dL Total Bilirubin 0.6 (0.2-1.3) mg/dL AST 46 H (14-36) IU/L ALT 37 H (<35) IU/L Alkaline Phosphatase 83 (38-126) U/L Total Creatine Kinase (30-135) U/L CK-MB (CK-2) (<2.37) ng/mL CK-MB (CK-2) Rel Index (1.5-5.0) % Troponin I (0.01-0.034) ng/mL NT-Pro-B Natriuret Pep (<125) pg/mL Total Protein 8.1 (6.3-8.2) g/dL Albumin 4.3 (3.5-5.0) g/dL Globulin 3.8 (1.7-4.1) g/dL Albumin/Globulin Ratio 1.1 (1.0-2.8) Chlamy pneumoniae PCR (Not Detect) Adenovirus (PCR) (Not Detect) B. pertussis DNA (PCR) (Not Detecte) B.parapertussis DNA PCR (Not Detecte) Coronavirus OC43 (PCR) (Not Detect) Coronavirus HKU1 (PCR) (Not Detect) Coronavirus 229E (PCR) (Not Detect) SARS-CoV-2 (PCR) (Not Detecte) Coronavirus NL63 (PCR) (Not Detect) Human Metapneumovir PCR (Not Detect) Influenza Type A (PCR) (Not Detect) Influenza Type B (PCR) (Not Detect) M. pneumoniae (PCR) (Not Detect) Parainfluenza 1 (PCR) (Not Detect) Parainfluenza 2 (PCR) (Not Detect) Parainfluenza 3 (PCR) (Not Detect) Parainfluenza 4 (PCR) (Not Detect) RSV (PCR) (Not Detect) Entero/Rhino (PCR) (Not Detect) 04/16/22 04/16/22 04/16/22 Range/Units 08:20 08:20 08:20 WBC (4.5-11.0) X10^3/uL RBC (4.0-5.2) X10^6/uL Hgb (12.0-16.0) g/dL Hct (36-46) % MCV (80-100) fL MCH (26-34) PG MCHC (30-36) % RDW (11.6-14.8) % Plt Count (150-400) X10^3/uL Neut % (Auto) (50-75) % Lymph % (Auto) (25-40) % [place] % (Auto) (3-14) % Eos % (Auto) (2-4) % Baso % (Auto) (0-2) % Neut # (Auto) (5780-1319) /uL Lymph # (Auto) (4272-7470) /uL [place] # (Auto) (0-900) /uL Eos # (Auto) (0-450) /uL Baso # (Auto) (0-100) /uL Sodium (137-145) mmol/L Potassium (3.4-5.1) mmol/L Chloride (98-107) mmol/L Carbon Dioxide (22-32) mmol/L BUN (7-17) mg/dL Creatinine (0.52-1.04) mg/dL Estimated GFR (>60) mL/min BUN/Creatinine Ratio (6-22) Glucose (80-110) mg/dL Lactate (0.7-2.1) mmol/L Calcium (8.4-10.2) mg/dL Total Bilirubin (0.2-1.3) mg/dL AST (14-36) IU/L ALT (<35) IU/L Alkaline Phosphatase (38-126) U/L Total Creatine Kinase 228 H (30-135) U/L CK-MB (CK-2) 2.07 (<2.37) ng/mL CK-MB (CK-2) Rel Index 0.9 L (1.5-5.0) % Troponin I < 0.012 (0.01-0.034) ng/mL NT-Pro-B Natriuret Pep 570 H (<125) pg/mL Total Protein (6.3-8.2) g/dL Albumin (3.5-5.0) g/dL Globulin (1.7-4.1) g/dL Albumin/Globulin Ratio (1.0-2.8) Chlamy pneumoniae PCR Not detected (Not Detect) Adenovirus (PCR) Detected H (Not Detect) B. pertussis DNA (PCR) Not detected (Not Detecte) B.parapertussis DNA PCR Not detected (Not Detecte) Coronavirus OC43 (PCR) Not detected (Not Detect) Coronavirus HKU1 (PCR) Not detected (Not Detect) Coronavirus 229E (PCR) Not detected (Not Detect) SARS-CoV-2 (PCR) Not detected (Not Detecte) Coronavirus NL63 (PCR) Not detected (Not Detect) Human Metapneumovir PCR Not detected (Not Detect) Influenza Type A (PCR) Not detected (Not Detect) Influenza Type B (PCR) Not detected (Not Detect) M. pneumoniae (PCR) Not detected (Not Detect) Parainfluenza 1 (PCR) Not detected (Not Detect) Parainfluenza 2 (PCR) Not detected (Not Detect) Parainfluenza 3 (PCR) Not detected (Not Detect) Parainfluenza 4 (PCR) Not detected (Not Detect) RSV (PCR) Not detected (Not Detect) Entero/Rhino (PCR) Not detected (Not Detect) Imaging Data Chest x-ray: Radiologist's Impression: No acute process. ECG Data Attestation: I personally reviewed and interpreted this ECG as follows: (Normal sinus rhythm rate 83 beats per minute. RBBB. Nonspecific ST T wave changes. No ectopy.) Discharge Plan Departure Patient Disposition: Home Clinical Impression: Viral URI Instructions: DI for Viral Upper Respiratory Infection -- Adult Activity Restrictions/Additional Instructions: Prednisone 40 mg daily for 5 days. Albuterol 2 puffs with spacer every 3-4 hours as needed for cough. Recheck with your doctor in 1 week if not improved. Return here as necessary. Prescriptions: New prednisone 20 mg tablet 40 mg PO DAILY 5 Days Qty: 10 0RF No Action ketorolac 10 mg tablet 10 mg PO Q6H PRN (Reason: pain) Qty: 14 0RF prednisone 20 mg tablet 40 mg PO DAILY Qty: 10 0RF albuterol sulfate 90 mcg/actuation HFA aerosol inhaler 2 puff INHALATION Q4-6H PRN (Reason: shortness of breath or wheezing) Qty: 8.5 0RF Robitussin Cough-Chest Sherman DM 10-200 mg capsule 1 tab-cap PO Q8H PRN (Reason: cough) Qty: 20 0RF Referrals: Gem Dwyer MD [Primary Care Provider] -
[2022-04-16] MEDS: methylPREDNISolone 125 MG/2 ML VIAL IV (09:25)
[2022-04-16 09:51] LABS: Creatine Kinase 228 U/L (30-135)
[2022-04-16 10:01] LABS: NT-proBNP (BNP-Adult 18+) 570 pg/mL (<125)
[2022-04-16 10:04] LABS: Troponin I < 0.012 ng/mL (0.01-0.034)
[2022-04-16 10:06] LABS: CKMB % Relative Index 0.9 % (1.5-5.0); Creatine Kinase MB 2.07 ng/mL (<2.37)
[2022-04-16 11:08] LABS: Adenovirus Detected (Not Detect)
[2022-04-16 11:09] LABS: B. parapertussis Not Detected (Not Detecte); Bordetella pertussis Not Detected (Not Detecte); Chlamydophila pneumoniae Not Detected (Not Detect); Coronavirus 229E Not Detected (Not Detect); Coronavirus HKU1 Not Detected (Not Detect); Coronavirus NL 63 Not Detected (Not Detect); Coronavirus OC43 Not Detected (Not Detect); Human Metapneumovirus Not Detected (Not Detect); Human Rhinovirus/Enterovirus Not Detected (Not Detect); Influenza A Not Detected (Not Detect); Influenza B Not Detected (Not Detect); Mycoplasma pneumoniae Not Detected (Not Detect); Parainfluenza Virus 1 Not Detected (Not Detect); Parainfluenza Virus 2 Not Detected (Not Detect); Parainfluenza Virus 3 Not Detected (Not Detect); Parainfluenza Virus 4 Not Detected (Not Detect); Respiratory Syncytial Virus Not Detected (Not Detect); SARS- CoV-2 Not Detected (Not Detecte)
[2022-04-16] MEDS: ALBUTEROL 2.5 MG/3 ML NEB (ADULT) INH (11:25)
[2022-04-16] MEDS: ALBUTEROL HFA PREPACK 1 BOX MISC (13:05)
== END 2022-04-16 13:36 | disposition home or self-care (01) ==
PROVIDERS: Emergency Provider Emergency Medicine; PCP Internal Medicine
DX: J06.9 Acute upper respiratory infection, unspecified (principal); Z20.822 Contact with and (suspected) exposure to COVID-19
CPT/HCPCS: 36415; 71046; 80053; 82550; 82553; 83605; 83880; 84484; 85025; 87633; 93005; 94640; 96374; 99284; J2930; J7613

== ENCOUNTER 2022-04-29 11:42 | Emergency (ER) | payer MEDICARE, SELFPAY ==
[2022-04-29 12:14] VITALS: BP 138/59; PULSE 64; RESP 15; TEMP 36.3; O2SAT 98; BMI 26.5
[2022-04-29 16:07] VITALS: BP 154/61
[2022-04-29 16:32] LABS: COVID19 -Nasal RAPID Negative (Negative)
--- NOTE | 2022-04-29 17:31 | ED_ITS ---
HPI - URI/Sore Throat <Naina Lala PA-C - Last Filed: 05/12/22 09:45> General Chief Complaint: Upper Respiratory Symptoms Stated Complaint: Cough sore throat Time Seen by Provider: 04/29/22 14:42 Source: patient Mode of arrival: Ambulatory History of Present Illness HPI Narrative: 71-year-old female with past medical history coronary artery disease, hypertension presents to the ED with 5 weeks of persistent cough. Patient states that she had a URI 5 weeks ago, other symptoms dissipated, however she is left with this persistent cough. Patient denies fever, chills, chest pain, shortness breath, nausea, vomiting, abdominal pain, flank pain, dysuria, lightheadedness, dizziness, syncope. Related Data Previous Rx's Medication Instructions Recorded ketorolac 10 mg tablet 10 mg PO Q6H PRN pain #14 tabs 02/07/22 albuterol sulfate 90 mcg/actuation 2 puff inhalation Q4-6H PRN 04/12/22 aerosol inhaler shortness of breath or wheezing #8.5 grams dextromethorphan-guaifenesin 10 1 tab-cap PO Q8H PRN cough #20 caps 04/12/22 mg-200 mg capsule (Robitussin Cough-Chest Congestion DM) prednisone 20 mg tablet 40 mg PO DAILY #10 tabs 04/12/22 benzonatate 200 mg capsule 200 mg PO TID PRN cough #30 caps 04/29/22 Allergies Allergy/AdvReac Type Severity Reaction Status Date / Time No Known Drug Allergies Allergy Verified 04/29/22 12:14 Review of Systems <Naina Lala PA-C - Last Filed: 05/12/22 09:45> Review of Systems ROS Unobtainable: All systems reviewed & are unremarkable except as noted in HPI and below Constitutional Constitutional: Denies chills, Denies fatigue, Denies fever(s), Denies frequent falls, Denies lethargy and Denies weakness Eyes Eyes: Denies change in vision, Denies eye discharge, Denies irritation and Denies loss of vision ENT Ears, Nose, Mouth, and Throat: Denies change in voice, Denies dizziness, Denies neck pain, Denies sore throat and Denies throat swelling Cardiovascular Cardiovascular: Denies chest pain, Denies irregular heart rhythm, Denies lightheadedness, Denies palpitations, Denies dyspnea, Denies dyspnea on exertion and Denies orthopnea Respiratory Respiratory: Reports cough, Denies dyspnea, Denies dyspnea on exertion and Denies wheezing Gastrointestinal Gastrointestinal: Denies abdominal pain, Denies change in bowel habits, Denies diarrhea, Denies nausea and Denies vomiting Genitourinary Genitourinary: Denies hematuria, Denies flank pain, Denies urinary incontinence and Denies urinary urgency Musculoskeletal Musculoskeletal: Denies back pain, Denies muscle weakness, Denies neck pain, Denies numbness and Denies tingling Integumentary/Breasts Skin/Breast: Denies pruritus, Denies erythema, Denies rash and Denies wounds Neurologic Neurologic: Denies behavioral changes, Denies confusion, Denies dizziness, Denies frequent falls, Denies loss of vision, Denies numbness, Denies tingling and Denies weakness Psychiatric Psychiatric: Denies anxiety, Denies behavioral changes, Denies confusion, Denies depression, Denies homicidal ideation and Denies suicidal ideation Endocrine Endocrine: Denies fatigue, Denies flushing and Denies palpitations Hematologic/Lymphatic Hematologic/Lymphatic: Denies easy bruising Allergic/Immunologic Allergic/Immunologic: Denies urticaria, Denies throat swelling and Denies wheezing Patient History <Naina Lala PA-C - Last Filed: 05/12/22 09:45> Medical History Coronary artery disease Hypertension Social History Smoking Status: Never smoker Smoking Status: Never smoker alcohol intake frequency: holidays/special occasions only Substance Use Type: does not use Exam <Naina Lala PA-C - Last Filed: 05/12/22 09:45> Narrative Exam Narrative: Const General:?cooperative, healthy appearing and comfortable [facility] Head:?normal to inspection Ears:?hearing grossly normal bilaterally Nose:?external nose normal Face and sinus:?normal facial exam and sinuses nontender Mouth:?oral mucosae normal Throat:?posterior oropharynx normal Eyes General:?appearance normal, both eyes and all related structures Neck Neck:?normal visual inspection and no lymphadenopathy noted Resp Effort & Inspection:?normal respiratory effort Auscultation:?clear to auscultation bilaterally Cardio Rate:?regular rate Rhythm:?regular rhythm Neuro General:?patient alert, patient awake and patient oriented x3 Initial Vital Signs Initial Vital Signs: Vital Signs Temperature 97.4 F L 04/29/22 12:14 Pulse Rate 64 04/29/22 12:14 Respiratory Rate 15 04/29/22 12:14 Blood Pressure 138/59 L 04/29/22 12:14 Pulse Oximetry 98 04/29/22 12:14 Oxygen Delivery Method 04/29/22 12:14 <Lisa Casey DO - Last Filed: 06/02/22 13:39> Initial Vital Signs Initial Vital Signs: Vital Signs Temperature 97.4 F L 04/29/22 12:14 Pulse Rate 64 04/29/22 12:14 Respiratory Rate 15 04/29/22 12:14 Blood Pressure 138/59 L 04/29/22 12:14 Pulse Oximetry 98 04/29/22 12:14 Oxygen Delivery Method 04/29/22 12:14 Course <Naina Lala PA-C - Last Filed: 05/12/22 09:45> Orders Ordered: ED Orders 04/29/22 12:16 EKG-12 Lead Stat 04/29/22 16:05 COVID19 -Nasal RAPID/Pre-Proc Stat Vital Signs Vital signs: Vital Signs - 8 hr 04/29/22 16:07 04/29/22 18:19 Pulse Rate 78 Respiratory Rate 20 Blood Pressure 154/61 H 193/80 H Pulse Oximetry 98 <Lisa Casey DO - Last Filed: 06/02/22 13:39> Orders Ordered: ED Orders 04/29/22 12:16 EKG-12 Lead Stat 04/29/22 16:05 COVID19 -Nasal RAPID/Pre-Proc Stat Vital Signs Vital signs: Vital Signs - 8 hr 04/29/22 16:07 04/29/22 18:19 Pulse Rate 78 Respiratory Rate 20 Blood Pressure 154/61 H 193/80 H Pulse Oximetry 98 MDM - URI/Sore Throat <COLLETTE Payton Last Filed: 05/12/22 09:45> Lab Data Attestation: I reviewed the patient's lab results. Lab results narrative: COVID-19 negative Labs: Lab Results 04/29/22 Range/Units 16:05 SARS-CoV-2 (PCR) Negative (Negative) MDM Narrative Medical decision making narrative: 71-year-old female with past medical history coronary artery disease, hypertension presents to the ED with 5 weeks of persistent cough. Concern for COVID-19 infection versus other viral syndrome versus bronchitis. COVID test was obtained and was negative. Physical exam was reassuring with normal bilateral breath sounds. Patient's symptoms are likely due to bronchitis. Will treat the cough with Tessalon Perles. ED return precautions discussed with patient. Patient verbalized understanding. <Lisa Casey DO - Last Filed: 06/02/22 13:39> Lab Data Labs: Lab Results 04/29/22 Range/Units 16:05 SARS-CoV-2 (PCR) Negative (Negative) Discharge Plan Departure Patient Disposition: Home Clinical Impression: Bronchitis Instructions: DI for Acute Bronchitis Activity Restrictions/Additional Instructions: You were evaluated in the ED today for a cough. Your COVID-19 test was negative. Your symptoms are likely due to bronchitis which is an inflammation of your airways. You may continue to use your inhaler. You have been prescribed Tessalon Perles for your cough. Return to the ED if you have fevers, chills, worsening symptoms, chest pain, shortness of breath. Prescriptions: New benzonatate 200 mg capsule 200 mg PO TID PRN (Reason: cough) Qty: 30 0RF No Action ketorolac 10 mg tablet 10 mg PO Q6H PRN (Reason: pain) Qty: 14 0RF prednisone 20 mg tablet 40 mg PO DAILY Qty: 10 0RF albuterol sulfate 90 mcg/actuation HFA aerosol inhaler 2 puff INHALATION Q4-6H PRN (Reason: shortness of breath or wheezing) Qty: 8.5 0RF Robitussin Cough-Chest [place] DM 10-200 mg capsule 1 tab-cap PO Q8H PRN (Reason: cough) Qty: 20 0RF Referrals: Gem Dwyer MD [Primary Care Provider] - Visit Report Forms: Patient Portal/API <Lisa Casey DO - Last Filed: 06/02/22 13:39> Cosign ED Attending Cosignature Attestation: I was immediately available in the department for consultation. Documentation has been reviewed.
[2022-04-29 18:19] VITALS: BP 193/80; PULSE 78; RESP 20; O2SAT 98
--- NOTE | 2022-04-29 18:20 | PC.NURSE ---
Pt BP elevated at time of discharge. Pt coughing quite a bit, also says this is normal and she will take her BP meds when she gets home.
== END 2022-04-29 18:20 | disposition home or self-care (01) ==
PROVIDERS: Emergency Medicine; Emergency Provider Student in an Organized Health Care Education/Training Program; PCP Internal Medicine
DX: J40 Bronchitis, not specified as acute or chronic (principal); R07.9 Chest pain, unspecified; Z20.822 Contact with and (suspected) exposure to COVID-19
CPT/HCPCS: 87635; 93005; 93010; 99283; C9803

== ENCOUNTER → 2023-12-16 09:46 | Outpatient (CLI) | payer OTHER, SELFPAY ==
--- NOTE | 2023-12-16 09:47 | DI.RAD.S_ITS ---
PROCEDURE: XR CHEST 2V INDICATIONS: Cough TECHNIQUE: 2 views of the chest were acquired. COMPARISON: Located Within [facility], CR, XR CHEST 2V, 04/16/2022, 8:35. FINDINGS: Surgical changes and devices: None. Lungs and pleura: Lungs are clear. No pleural effusions or pneumothorax. Mediastinum: Mediastinal contours are normal. Heart size is normal. Bones and chest wall: No suspicious bony abnormalities. Soft tissues appear unremarkable. IMPRESSION: No acute cardiopulmonary abnormality is seen. Approved by: Sreedhar Zamarripa M.D. on 12/16/2023 at 17:45
== END ==
LOC: RAD 09:46
PROVIDERS: Referring Provider Nurse Practitioner Family; Visit Provider Nurse Practitioner Family
DX: R05.9 Cough, unspecified (principal)
CPT/HCPCS: 71046

== ENCOUNTER 2023-12-18 19:11 | Emergency (ER) | payer OTHER, SELFPAY ==
[2023-12-18 19:20] VITALS: BP 152/68; PULSE 70; RESP 20; TEMP 36.4; O2SAT 98; BMI 30.1
--- NOTE | 2023-12-18 19:42 | DI.RAD.S_ITS ---
PROCEDURE: XR CHEST 2V INDICATIONS: WORSENING COUGH TECHNIQUE: 2 views of the chest were acquired. COMPARISON: [facility], CR, XR CHEST 2V, 04/12/2022, 7:54. [facility], CR, XR CHEST 2V, 04/16/2022, 8:35. [facility], CR, XR CHEST 2V, 12/16/2023, 9:47. FINDINGS: Surgical changes and devices: None. Lungs and pleura: Lungs are clear. No pleural effusions or pneumothorax. There is right diaphragmatic eventration. Mediastinum: Mediastinal contours are normal. Heart size is normal. Bones and chest wall: No suspicious bony abnormalities. Soft tissues appear unremarkable. IMPRESSION: No acute cardiopulmonary abnormality is seen. Dictated by: Kain Resendez M.D. on 12/18/2023 at 20:08 Approved by: Kani Resendez M.D. on 12/18/2023 at 20:09
--- NOTE | 2023-12-18 19:43 | ED.CHESTPAIN ---
HPI - Chest Pain General Chief Complaint: Chest Pain Stated Complaint: cough, chest pain Time Seen by Provider: 12/18/23 19:20 Source: patient Mode of arrival: Ambulatory Limitations: no limitations History of Present Illness HPI narrative: 73-year-old female presents for persistent cough for multiple weeks. Saw the walk-in clinic 2 days ago, had a chest x-ray and was told she would bronchitis. She was discharged with Brea Yates, but states that she is still coughing and it is bothersome and causing her trouble sleeping. She states that she was coughing so hard it gives her chest and stomach pains. She is here today for 2nd opinion. Related Data Home Medications Medication Instructions Recorded Confirmed atorvastatin 10 mg tablet 10 mg PO DAILY 12/16/23 12/16/23 losartan 100 mg tablet 100 mg PO DAILY 12/16/23 12/16/23 metoprolol succinate 100 mg 100 mg PO DAILY 12/16/23 12/16/23 tablet,extended release 24 hr pantoprazole 40 mg tablet,delayed 40 mg PO DAILY 12/16/23 12/16/23 release sertraline 100 mg tablet 100 mg PO DAILY 12/16/23 12/16/23 sumatriptan succinate 50 mg tablet 50 mg PO 12/16/23 12/16/23 zolpidem 5 mg tablet 5 mg PO ONCE PM PRN 12/16/23 12/16/23 Previous Rx's Medication Instructions Recorded ketorolac 10 mg tablet 10 mg PO Q6H PRN pain #14 tabs 02/07/22 albuterol sulfate 90 mcg/actuation 2 puff inhalation Q4-6H PRN 04/12/22 aerosol inhaler shortness of breath or wheezing #8.5 grams dextromethorphan-guaifenesin 10 1 tab-cap PO Q8H PRN cough #20 caps 04/12/22 mg-200 mg capsule (Robitussin Cough-Chest Congestion DM) prednisone 20 mg tablet 40 mg (2 x 20 mg) PO DAILY #10 tabs 04/12/22 benzonatate 200 mg capsule 200 mg PO TID PRN cough #30 caps 04/29/22 benzonatate 100 mg capsule 100 mg PO BID PRN cough #20 caps 12/16/23 fluticasone propionate 50 1 spray intranasal Q12H #16 grams 01/24/24 mcg/actuation nasal spray,suspension (Flonase Allergy Relief) hydrocodone-homatropine 5 mg-1.5 5 ml PO Q4-6H PRN cough #100 mL 12/18/23 mg/5 mL (5 mL) oral syrup (Hycodan) Allergies Allergy/AdvReac Type Severity Reaction Status Date / Time No Known Drug Allergies Allergy Verified 12/16/23 09:28 Review of Systems Review of Systems Narrative: See HPI Patient History Medical History Coronary artery disease Hypertension Social History Smoking Status: Never smoker Smoking Status: Never smoker alcohol intake frequency: holidays/special occasions only Substance Use Type: does not use Exam Initial Vital Signs Initial Vital Signs: Vital Signs Temperature 97.5 F L 12/18/23 19:20 Pulse Rate 70 12/18/23 19:20 Respiratory Rate 20 12/18/23 19:20 Blood Pressure 152/68 H 12/18/23 19:20 Pulse Oximetry 98 12/18/23 19:20 Oxygen Delivery Method Room Air 12/18/23 19:20 Const: Awake, alert, no acute distress, nontoxic appearing Cardiac: regular rate, regular rhythm RESP: unlabored, clear bilaterally, no wheezing GI: Atraumatic, soft, nontender, nondistended, no rebound, no guarding MSK: Atraumatic, full range of motion, pulses equal Skin: Warm, Dry, intact, no rashes Neuro: AO x3, CN II-XII grossly intact, moves all extremities Psych: affect normal, mood normal, not suicidal, not homicidal Course Orders Ordered: ED Orders 12/18/23 19:42 Chest [XR chest 2V] Stat Discontinued Medications Dexamethasone (Dexamethasone 10 Mg/Ml Vial) 10 mg PO NOW ONE Stop: 12/18/23 19:43 Last Admin: 12/18/23 19:48 Dose: 10 mg Documented By: JAY Vital Signs Vital signs: Vital Signs - 8 hr 12/18/23 19:20 12/18/23 20:42 Temperature 97.5 F L Pulse Rate 70 62 Respiratory Rate 20 22 Blood Pressure 152/68 H Pulse Oximetry 98 96 Oxygen Delivery Method Room Air Room Air MDM - Chest Pain Differential Diagnosis Differential diagnosis: Likely other (bronchitis, pneumonia, viral syndrome) MDM Narrative Medical decision making narrative: Persistent nonproductive cough not improved with Tessalon Perles. Lungs are clear to auscultation bilaterally, saturating well on room air, conversational without dyspnea. Repeat two-view chest x-ray shows no evidence of pneumonia. Patient given a dose of steroids, additional cough medication sent to pharmacy of choice. Patient was advised that since she is on Ambien she should not mix these 2 medications. PCP follow up advised. Discharge Plan Departure Patient Disposition: Home Clinical Impression: Cough Instructions: DI for Chronic Bronchitis Prescriptions: New hydrocodone-homatropine [Hycodan] 5-1.5 mg/5 mL (5 mL) syrup 5 ml PO Q4-6H PRN (Reason: cough) Qty: 100 0RF Rx Instructions: DO NOT TAKE WITH AMBIEN, ALCOHOL, OR OTHER SEDATIVES No Action zolpidem 5 mg tablet 5 mg PO ONCE PM PRN losartan 100 mg tablet 100 mg PO DAILY pantoprazole 40 mg tablet,delayed release (DR/EC) 40 mg PO DAILY sumatriptan succinate 50 mg tablet 50 mg PO sertraline 100 mg tablet 100 mg PO DAILY metoprolol succinate 100 mg tablet extended release 24 hr 100 mg PO DAILY atorvastatin 10 mg tablet 10 mg PO DAILY benzonatate 100 mg capsule 100 mg PO BID PRN (Reason: cough) Qty: 20 0RF fluticasone propionate [Flonase Allergy Relief] 50 mcg/actuation spray,suspension 1 spray intranasal Q12H Qty: 16 0RF Rx Instructions: administer into each nostril ketorolac 10 mg tablet 10 mg PO Q6H PRN (Reason: pain) Qty: 14 0RF benzonatate 200 mg capsule 200 mg PO TID PRN (Reason: cough) Qty: 30 0RF prednisone 20 mg tablet 40 mg PO DAILY Qty: 10 0RF albuterol sulfate 90 mcg/actuation HFA aerosol inhaler 2 puff INHALATION Q4-6H PRN (Reason: shortness of breath or wheezing) Qty: 8.5 0RF Robitussin Cough-Chest [place] DM 10-200 mg capsule 1 tab-cap PO Q8H PRN (Reason: cough) Qty: 20 0RF Referrals: Domonique Dwyer MD [Primary Care Provider] - Stand Alone Forms: Patient Portal/API
[2023-12-18] MEDS: DEXAMETHASONE 10 MG/ML VIAL PO (19:48)
[2023-12-18 20:42] VITALS: PULSE 62; RESP 22; O2SAT 96
== END 2023-12-18 20:45 | disposition home or self-care (01) ==
PROVIDERS: Emergency Provider Emergency Medicine; PCP Hospitalist
DX: R05.9 Cough, unspecified (principal)
CPT/HCPCS: 71046; 99283; J1100